=== PATIENT | male | born 1940 | race Caucasian/White ===

== ENCOUNTER → 2017-06-28 | Outpatient (CLI) | payer OTHER, BC ==
[~2017-06-28] MED LIST: ASPEC81 PO; ASPI81TA28 PO; ATOR-24 PO; CRS10 PO; CYAN500T PO; FOLI1TAB8 PO; MULT-506 PO; MULTCAP33 PO; PRED1SUS17 OP; [UNRECOGNIZED DRUG - REMARK]
--- NOTE | 2017-06-28 15:00 | DIAGNOSTIC IMAGING REPORT ---
MRI OF THE LEFT SHOULDER NO CONTRAST CLINICAL HISTORY: Left shoulder pain COMPARISON STUDY: Outside radiographs dated 06/18/2017 FINDINGS: Imaging was performed in the sagittal, coronal, and axial planes. There is mild medial subluxation of the bicipital tendon. There is thickening and increased signal of the superior bicipital tendon consistent with a tendinopathy. There are advanced arthritic changes present within the glenohumeral joint. There is a small joint effusion. There are full-thickness tears of the supraspinatus tendon with 2 cm of tendinous retraction. There is supraspinatus muscular atrophy. There is a partial tear of the subscapularis. There is marrow edema involving the anterior aspect of the humeral head neck junction. IMPRESSION: 1. Full-thickness rotator cuff tear with 2 cm of tendinous retraction 2. Mild medial subluxation of the bicipital tendon. Superior bicipital tendinopathy 3. 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 06/28/2017 2:58 PM Dictated Date/Time: 06/28/2017 2:48 PM
== END | disposition home or self-care (01) ==
LOC: C.MRIBC 13:54
PROVIDERS: ATTEND Orthopaedic Surgery
DX: M75.102 Unspecified rotator cuff tear or rupture of left shoulder, not specified as traumatic (principal); M75.22 Bicipital tendinitis, left shoulder; M24.812 Other specific joint derangements of left shoulder, not elsewhere classified

== ENCOUNTER → 2017-07-22 | Day surgery (SDC) | payer OTHER, BC ==
[2017-07-03 12:21] VITALS: Ht 170.2 cm; Wt 64.5 kg
[2017-07-04 10:37] LABS: BASO % 0.5 %; BASO ABS # 0.04 K/uL (0-0.2); EOS % 2.6 %; HEMATOCRIT 44.1 % (42-52); HEMOGLOBIN 15.2 g/dL (14.0-18.0); IG# 0.01 K/uL (0.00-0.02); LYMPH % 24.4 %; MEAN CELL VOLUME 94.2 fL (80-100); MEAN CORPUSCULAR HEMOGLOBIN 32.5 pg (25-34); MEAN CORPUSCULAR HGB CONC 34.5 g/dl (32-36); MEAN PLATELET VOLUME 8.6 fL (7.4-10.4); MONO % 8.5 %; MONO ABS # 0.66 K/uL (0.11-0.59); NEUT % 63.9 %; NEUT ABS # 4.98 K/uL (1.4-6.5); PLATELET COUNT 245 K/uL (130-400); RED CELL DISTRIBUTION WIDTH CV 14.1 % (11.5-14.5); RED CELL DISTRIBUTION WIDTH SD 48.4 fL (36.4-46.3); WHITE BLOOD COUNT 7.79 K/uL (4.8-10.8)
[2017-07-04 10:41] LABS: CALCIUM 9.7 mg/dl (8.5-10.1); CREATININE 0.93 mg/dl (0.60-1.40); POTASSIUM 4.2 mmol/L (3.5-5.1)
[~2017-07-22] VITALS: Ht 170.2 cm; Wt 64.5 kg
[~2017-07-22] MED LIST changes: -ASPEC81 PO; +ATROPINE SULFATE 0.1 MG/ML 5ML SYR IV PRN; +BUPIVACAINE 0.25% 30 ML VIAL ONE; +CEFAZOLIN 2000MG IV PUSH 15 ML IV SCH; -CRS10 PO; +DEXAMETHASONE SOD INJ 4 MG/ML VIAL IV PRN; +DEXAMETHASONE SOD INJ 4 MG/ML VIAL ONE; +EpHEDrine SULFATE INJ 50 MG/ML AMP IV PRN; +EpHEDrine SULFATE INJ 50 MG/ML AMP ONE; +EpINEphrine INJ 1MG/ML AMP 1 MG/ML AMP ONE; +FENTANYL CITRATE INJ 50 MCG/1 ML 2 ML VIAL IV PRN; +FENTANYL CITRATE INJ 50 MCG/1 ML 2 ML VIAL ONE; +KETO10TA PO; +KETOROLAC TROMETHAMINE 30 MG/ML VIAL IV. PRN; +LABETALOL HCL IV 5 MG/ML 20ML IV PRN; +LACTATED RINGER'S 1000ML 1,000 ML IV SCH; +LIDOCAINE HCL 2% 2 ML VIAL (20MG/ML) ONE; +METOCLOPRAMIDE HCL INJ 5 MG/ML 2 ML VIAL IV PRN; +MIDAZOLAM HCL 1 MG/ML 2ML VIAL ONE; -MULT-506 PO; +MoRPHine SULFATE 10 MG/ML CARP/VIAL IV PRN; +ONDANSETRON INJ 2 MG/ML 2 ML VIAL IV PRN; +ONDANSETRON INJ 2 MG/ML 2 ML VIAL ONE; +OXYC-57 PO; +OXYCODONE/ACETAMINOPHEN 5-325 TAB PO PRN; +PHENYLEPHRINE 100MCG/ML 5ML SYR IV PRN; +PROPOFOL IV EMULSION 10 MG/ML 20 ML VIAL IV ONE; +ROPIVACAINE 0.5% 5 MG/ML 30 ML VIAL ONE; +SODIUM CHLORIDE 0.9% 1000ML 1,000 ML IV SCH; -[UNRECOGNIZED DRUG - REMARK]
--- NOTE | 2017-07-22 06:23 | Discharge Instructions ---
Discharge Instructions Date of Service Jul 22, 2017. Visit Reason for Visit: Full Thickness Rotator Cuff Tear, Chronic Pain Discharge Discharge Diagnosis / Problem: Right cuff repair Discharge Goals Goal(s): Decrease discomfort, Improve function Activity Recommendations Activity Limitations: as noted below Anesthesia . Post Anesthesia Instructions: If you have had General Anesthesia or IV Sedation: * Do not drive today. * Resume driving when surgeon permits. * Do not make important decisions or sign legal documents today. * Call surgeon for: 1. Temperature elevations greater than 101 degrees F. 2. Uncontrollable pain. 3. Excessive bleeding. 4. Persistent nausea and vomiting. 5. Medication intolerance (nausea, vomiting or rash). * For nausea and vomiting use only clear liquids such as: tea, soda, bouillon until nausea subsides, then gradually increase diet as tolerated. * If you have any concerns or questions, call your surgeon's office. If physician is unavailable and it is an emergency, call 911 or go to the nearest emergency room. . Instructions / Follow-Up Instructions / Follow-Up follow instructions from our office, may shower in 48 hours, follow-up with Dr Eldridge in 2 weeks Diet Recommendations Recommended Home Diet: no limitations Pending Studies Studies pending at discharge: no Medical Emergencies . Who to Call and When: Medical Emergencies: If at any time you feel your situation is an emergency, please call 911 immediately. . Non-Emergent Contact Non-Emergency issues call your: Surgeon Call Non-Emergent contact if: wound has increased drainage, wound has increased redness . . "Provider Documentation" section prepared by Frandy Eldridge. .
--- NOTE | 2017-07-22 07:16 | History & Physical Bridge Note ---
H&P Re-Evaluation Bridge Note: I have examined the patient, reviewed the History & Physical and in the interval since the performance of the History & Physical I have noted the following changes of clinical significance: No changes noted
--- NOTE | 2017-07-22 09:55 | [facility] Post Operative Brief Note ---
Immediate Operative Summary Operative Date Jul 22, 2017. Pre-Operative Diagnosis Full thickness rotator cuff tear, chronic pain Post-Operative Diagnosis same as preop Procedure(s) Performed Left Shoulder Arthroscopy, Acromioplasty, Rotator Cuff Repair, Biceps Tenodesis Surgeon Dr. Eldridge Addictions Counselor Assistant Surgeon(s) none Estimated Blood Loss 5cc Findings Consistent with Post-Op Diagnosis Specimens none Anesthesia Type General Regional Complication(s) none Disposition Disposition: Recovery Room / PACU
[2017-07-22 10:28] VITALS: TEMP 36.2
--- NOTE | 2017-07-22 11:37 | Anesthesia Progress Nt - [facility] ---
Anesthesia Post Op Note Date & Time Jul 22, 2017 at 11:37 Vital Signs Pain Intensity: 1.0 Vital Signs Past 12 Hours Date Time Temp Pulse Resp B/P (MAP) Pulse Ox O2 Delivery O2 Flow Rate FiO2 07/22/17 10:28 36.2 51 18 124/71 (88) 97 Room Air 07/22/17 10:23 36.4 62 20 137/63 100 Room Air 07/22/17 10:23 137/63 07/22/17 10:21 61 6 07/22/17 10:21 60 6 98 07/22/17 10:20 63 11 07/22/17 10:20 62 11 99 07/22/17 10:17 134/60 07/22/17 10:16 134/60 07/22/17 10:15 66 4 100 07/22/17 10:15 65 4 07/22/17 10:14 65 4 100 07/22/17 10:14 67 4 07/22/17 10:11 128/57 07/22/17 10:09 65 2 100 07/22/17 10:09 64 2 07/22/17 10:08 65 0 100 07/22/17 10:08 65 0 07/22/17 10:07 62 0 100 07/22/17 10:07 62 0 07/22/17 10:06 134/58 07/22/17 10:02 68 11 100 07/22/17 10:02 67 11 07/22/17 10:01 126/62 07/22/17 09:57 66 10 07/22/17 09:57 67 10 99 07/22/17 09:56 147/64 07/22/17 09:55 142/63 07/22/17 09:54 36.2 61 16 142/63 100 Mask 10 07/22/17 07:57 0 07/22/17 07:56 15 07/22/17 07:51 53 07/22/17 07:51 53 15 124/66 100 07/22/17 07:47 144/74 07/22/17 07:46 56 0 07/22/17 07:43 159/83 07/22/17 06:51 36.4 60 20 157/76 (103) 97 Room Air Notes Mental Status: alert / awake / arousable, participated in evaluation Pt Amnestic to Procedure: Yes Nausea / Vomiting: adequately controlled Pain: adequately controlled Airway Patency, RR, SpO2: stable & adequate BP & HR: stable & adequate Hydration State: stable & adequate Anesthetic Complications: no major complications apparent
[2017-07-22 11:39] VITALS: BP 155/75; PULSE 56; O2SAT 98
--- NOTE | 2017-07-22 18:34 | OPERATIVE REPORT ---
DATE OF OPERATION: 07/22/2017 PREOPERATIVE DIAGNOSIS: Anterior superior rotator cuff tear of the left shoulder. POSTOPERATIVE DIAGNOSIS: Same. PROCEDURE: Left shoulder diagnostic arthroscopy with extensive debridement, acromioplasty anterior superior rotator cuff repair and open subpec biceps tenodesis. SURGEON: Frandy Eldridge DO. QA AUTOMATION ARCHITECT: None. ANESTHESIA: General with a left interscalene nerve block. COMPLICATIONS: None. CONDITION: Stable to PACU. INDICATIONS: Devonte is a pleasant 76-year-old male who has been having a 6-month history of left shoulder pain. He denies any trauma. MRI and clinical examination were diagnostic for a medially subluxated biceps tendon with an anterior superior cuff tear. After failing conservative treatment, he elected to undergo arthroscopy. DESCRIPTION OF PROCEDURE: On 07/22/2017, he arrived at [facility] for the above procedure. He was seen in the preoperative holding area and the operative extremity was identified and signed. He was given a preoperative antibiotic and a left interscalene nerve block. He was taken back to the operating room, laid on the table in supine position and put under general anesthesia. He was then put into the beachchair position. The left shoulder was prepped and draped in sterile fashion. Time-out was done. The patient's operative extremity was properly identified. A scope was introduced in the posterior portal. Diagnostic arthroscopy showed no cartilage damage to the humeral head or the glenoid. There was a little fraying of the anterior labrum. The biceps tendon was subluxated medially and had cut through the upper half of the subscapularis. There was a tear of the supraspinatus, but the infraspinatus and teres minor were intact. An anterior portal was made. A shaver was used to start a debridement of the intraarticular structures. The loose labral tissue was taken down to stable margins. The biceps tendon was arthroscopically tenotomized to get it out of the way. The scope was then put in the subacromial space. A lateral portal was made. A shaver was used to do a complete subacromial and subdeltoid bursectomy. Significant time was spent cleaning up the spaces. An ablator was used to tease the coracoacromial ligament off the undersurface of the acromion and a 5-0 arabella was used to complete an acromioplasty of a very large Bigliani type 3 acromion. A shaver was used to remove any excess debris and the rotator cuff was examined extensively. An additional anterolateral portal was made and Fatou cannulas were placed in each of the lateral portals. The greater tuberosity and lesser tuberosity were prepared with a ring curette and a microfracture. The subscapularis was fixed first, then separately. A single 4.75 mm BioComposite SwiveLock suture anchor was placed in the medial row of the lesser tuberosity. Two FiberTapes were passed through the tendon separately and brought down to a single lateral row anchor. This gave a nice knotless modified SpeedBridge repair on the subscapularis. Attention was then turned to the supraspinatus. Arthrex BioComposite SwiveLock suture anchors and FiberTapes were used to complete an Arthrex SpeedBridge repair. Multiple pictures were taken. The scope was placed back into the glenohumeral joint and the articular margin of rotator cuff had been restored. Pictures were taken. Arthroscopic scope instruments removed from the shoulder. Attention was turned to an open biceps tenodesis. A small incision was made over the inferior border of the pectoralis major. Dissection was taken down through the fascia and long head of the biceps tendon was delivered out of the wound. The tendon was then whip stitched at the anticipated level of tenodesis and the remainder of the tendon was discarded. A 6 mm hole was drilled in the bicipital groove and the biceps tendon was tenodesed with an Arthrex biceps button that was passed through the posterior cortex in a tension slide technique to deliver the tendon into the 6 mm hole. This gave good fixation. The wound was then irrigated, closed with 3-0 Vicryl and running 3-0 Monocryl. Steri-strips were placed. Portal sites were closed with 3-0 nylon. He was then placed in a soft dressing and abduction arm sling. He was then extubated, transferred to a litter and taken to the postanesthesia care unit in stable condition. He tolerated the procedure well. I attest to the content of the Intraoperative Record and any orders documented therein. Any exception s are noted below.
== END | disposition home or self-care (01) ==
LOC: X.SURG 06:33
PROVIDERS: ATTEND Orthopaedic Surgery
DX: M75.102 Unspecified rotator cuff tear or rupture of left shoulder, not specified as traumatic (principal); E11.9 Type 2 diabetes mellitus without complications; E78.00 Pure hypercholesterolemia, unspecified; Z83.3 Family history of diabetes mellitus; Z80.1 Family history of malignant neoplasm of trachea, bronchus and lung; Z98.41 Cataract extraction status, right eye; Z98.42 Cataract extraction status, left eye

== ENCOUNTER → 2017-09-24 | Day surgery (SDC) | payer OTHER, BC ==
[2017-08-14 10:12] VITALS: Ht 170.2 cm; Wt 64.5 kg
[~2017-09-24] VITALS: Ht 170.2 cm; Wt 64.5 kg
[~2017-09-24] MED LIST changes: +500ML BSS 0.3ML EPI 1:1000PF IRRIG ONE; +ACETAMINOPHEN 325 MG TAB PO PRN; +AMVISC PLUS 0.8ML SYRINGE INT OCU ONE; +BSS FLUSH ONE; -BUPIVACAINE 0.25% 30 ML VIAL ONE; -CEFAZOLIN 2000MG IV PUSH 15 ML IV SCH; -DEXAMETHASONE SOD INJ 4 MG/ML VIAL IV PRN; -DEXAMETHASONE SOD INJ 4 MG/ML VIAL ONE; -EpHEDrine SULFATE INJ 50 MG/ML AMP ONE; -FENTANYL CITRATE INJ 50 MCG/1 ML 2 ML VIAL IV PRN; -FENTANYL CITRATE INJ 50 MCG/1 ML 2 ML VIAL ONE; +IBUP-1459 PO; -KETO10TA PO; -KETOROLAC TROMETHAMINE 30 MG/ML VIAL IV. PRN; -LABETALOL HCL IV 5 MG/ML 20ML IV PRN; -LACTATED RINGER'S 1000ML 1,000 ML IV SCH; +LACTATED RINGER'S 1000ML 500 ML IV SCH; +LIDOCAINE 3.5% OPH GEL PER APPLICATION CHARGE ONE; +LIDOCAINE HCL 1% MPF 2 ML VIAL ONE; -LIDOCAINE HCL 2% 2 ML VIAL (20MG/ML) ONE; -METOCLOPRAMIDE HCL INJ 5 MG/ML 2 ML VIAL IV PRN; -MoRPHine SULFATE 10 MG/ML CARP/VIAL IV PRN; +OCUCOAT 1 ML SOLN IO ONE; -ONDANSETRON INJ 2 MG/ML 2 ML VIAL IV PRN; -ONDANSETRON INJ 2 MG/ML 2 ML VIAL ONE; -OXYC-57 PO; -OXYCODONE/ACETAMINOPHEN 5-325 TAB PO PRN; -PHENYLEPHRINE 100MCG/ML 5ML SYR IV PRN; +POVIDONE-IODINE OP SOLN 30 ML BTL ONE; -PRED1SUS17 OP; +PROPARACAINE 0.5% OP SOLN PER DROP CHARGE OPR SCH; -PROPOFOL IV EMULSION 10 MG/ML 20 ML VIAL IV ONE; -ROPIVACAINE 0.5% 5 MG/ML 30 ML VIAL ONE; -SODIUM CHLORIDE 0.9% 1000ML 1,000 ML IV SCH; +TOBRAMYCIN/DEXAMETHASONE OPH OINT PER APPLN CHARGE ONE
[2017-09-24] MEDS: PHENYLEPHRINE HCL 2.5% OP SOLN PER DROP CHARGE OPR SCH ×2 (06:53→06:59)
[2017-09-24] MEDS: TROPICAMIDE 1% OP SOLN PER DROP CHARGE OPR SCH ×2 (06:54→07:00)
[2017-09-24] MEDS: CYCLOPENTOLATE HCL 1% OP SOLN PER DROP CHARGE OPR SCH ×2 (06:55→07:01)
[2017-09-24] MEDS: KETOROLAC 0.5% OP SOLN PER DROP CHARGE OPR SCH ×2 (06:56→07:03)
[2017-09-24] MEDS: GATIFLOXACIN OP SOLN PER DROP CHARGE OPR SCH ×2 (06:58→07:12)
--- NOTE | 2017-09-24 07:27 | History & Physical Bridge - [place] ---
H&P Re-Evaluation Bridge Note: I have examined the patient, reviewed the History & Physical and in the interval since the performance of the History & Physical I have noted the following changes of clinical significance Diagnosis: Right Cataract Procedure: Right Cataract Removal with Lens Implant : No changes noted
--- NOTE | 2017-09-24 08:10 | [facility] Operative Report ---
Operative Report Date of Service September 24, 2017. Operative Report 1. PREOPERATIVE DIAGNOSIS: Cataract of the right eye. 2. POSTOPERATIVE DIAGNOSIS: Same. 3. PROCEDURE: Phacoemulsification with intraocular lens implantation of the right eye. SURGEON: Dr. Angelo Greenfield. ANESTHESIA: Topical Lidocaine gel, 1% Non- Preserved intracameral Lidocaine, and monitored intravenous sedation. INDICATIONS FOR THE PROCEDURE: The patient is a 76 - year-old male with a history of cataract of the right eye causing significant visual impairment. The details of the proposed procedure were explained to the patient who asked appropriate questions and following discussion of all risks, benefits and alternatives agreed to have the procedure done. 4. OPERATION AND FINDINGS: DESCRIPTION OF PROCEDURE: After informed consent was obtained, the patient was brought to the Operating Room at the [facility]. The patient was placed in a supine position and then the right eye was prepped and draped in the usual sterile fashion for intraocular surgery. A drop of topical Lidocaine gel was placed in the operative eye. A wire lid speculum was then placed in the fornices. A corneal paracentesis was then created temporally. The Non-Preserved Lidocaine was then instilled into the anterior chamber. The anterior chamber was then pressurized with viscoelastic. A 2.0 mm clear corneal incision was then created temporally. A cystotome was inserted into the anterior chamber and used to create a tear in the anterior lens capsule. This capsular tear was then used to create a small flap and the flap was dragged in a counterclockwise direction in order to create a continuous curvilinear capsulorrhexis. Hydrodissection was accomplished with balanced salt solution. Phacoemulsification of the lens nucleus was then performed in a standard [id number] technique. The phaco time was 34 seconds with an average power of 15 %. The remaining cortical material was removed using irrigation aspiration. The capsular bag was then filled with viscoelastic. A Bausch [employer] Lomb MI60L +19.5 diopters lens was then loaded into the injector and injected into the capsular bag. The remaining viscoelastic was removed with the irrigation aspiration handpiece. The wound was hydrated and then checked and found to be watertight. The intraocular pressure was checked and found to be adequate. The wire lid speculum was removed and the patient's face was cleaned and dried. TobraDex ointment was placed in the inferior fornix. The patient was discharged to the Recovery Room having tolerated the procedure well. There were no complications. The patient will be seen tomorrow in the office for follow-up. I attest to the content of the Intraoperative Record and any orders documented therein. Any exceptions are noted below.
--- NOTE | 2017-09-24 08:11 | Discharge Instructions-SurgCtr ---
Discharge Instructions Date of Service September 24, 2017. Visit Reason for Visit: Cataract Right Discharge Discharge Diagnosis / Problem: cataract Discharge Goals Goal(s): Improve function Activity Recommendations Activity Limitations: per Instructions/Follow-up section Anesthesia . Post Anesthesia Instructions: If you have had General Anesthesia or IV Sedation: * Do not drive today. * Resume driving when surgeon permits. * Do not make important decisions or sign legal documents today. * Call surgeon for: 1. Temperature elevations greater than 101 degrees F. 2. Uncontrollable pain. 3. Excessive bleeding. 4. Persistent nausea and vomiting. 5. Medication intolerance (nausea, vomiting or rash). * For nausea and vomiting use only clear liquids such as: tea, soda, bouillon until nausea subsides, then gradually increase diet as tolerated. * If you have any concerns or questions, call your surgeon's office. If physician is unavailable and it is an emergency, call 911 or go to the nearest emergency room. . Diet Recommendations Home Diet: resume previous diet Procedures Procedures Performed: Right Cataract Phacoemulsification With Intraocular Lens Implant Pending Studies Studies pending at discharge: no Medical Emergencies . Who to Call and When: Medical Emergencies: If at any time you feel your situation is an emergency, please call 911 immediately. . Non-Emergent Contact Non-Emergency issues call your: Structural Manager . . "Provider Documentation" section prepared by Angelo Greenfield. .
[2017-09-24 08:14] VITALS: TEMP 36.5
--- NOTE | 2017-09-24 08:28 | Anesthesia Progress Nt - [facility] ---
Anesthesia Post Op Note Date & Time September 24, 2017 at 08:28 Vital Signs Pain Intensity: 0 Vital Signs Past 12 Hours Date Time Temp Pulse Resp B/P (MAP) Pulse Ox O2 Delivery O2 Flow Rate FiO2 09/24/17 08:14 36.5 50 16 148/73 (98) 100 Room Air 09/24/17 06:41 36.4 54 18 177/79 (111) 98 Room Air Notes Mental Status: alert / awake / arousable, participated in evaluation Pt Amnestic to Procedure: Yes Nausea / Vomiting: adequately controlled Pain: adequately controlled Airway Patency, RR, SpO2: stable & adequate BP & HR: stable & adequate Hydration State: stable & adequate Anesthetic Complications: no major complications apparent
[2017-09-24 08:37] VITALS: BP 156/65; PULSE 55; O2SAT 97
== END | disposition home or self-care (01) ==
LOC: X.SURG 06:29
PROVIDERS: ATTEND Ophthalmology
DX: H26.9 Unspecified cataract (principal); E78.5 Hyperlipidemia, unspecified; E11.9 Type 2 diabetes mellitus without complications; M11.242 Other chondrocalcinosis, left hand; H35.30 Unspecified macular degeneration; E72.12 Methylenetetrahydrofolate reductase deficiency; Z86.718 Personal history of other venous thrombosis and embolism; Z79.82 Long term (current) use of aspirin